=== PATIENT | female | born 1950 | race Caucasian/White ===

== ENCOUNTER 2023-09-18 09:08 | Outpatient (CLI) | payer MEDICARE, OTHER, SELFPAY ==
--- NOTE | 2023-09-18 09:15 | CRLHL7_ITS ---
For Patients: As a result of the Century Cures Act, medical imaging exams and procedure reports are released immediately into your electronic medical record. You may view this report before your referring provider. If you have questions, please contact your health care provider. INDICATION : Right thyroid lobe nodule TECHNIQUE : Ultrasound-guided fine needle aspiration of thyroid nodule. Comparison : 08/29/2023 FINDINGS : PROCEDURE: After the informed consent and time-out, multiple fine needle aspirations were obtained from the thyroid nodule. Fine needle performed. 25 gauge needles were used. Lidocaine was used for local anesthesia. The preliminary cytology was adequate for interpretation. Real-time imaging was used for guidance and needle placement. Post imaging ultrasound demonstrates no immediate complication. IMPRESSION : Successful fine needle aspiration of right thyroid nodule. Dictated by Feliz Rodriguez MD @ 09/18/2023 10:18:47 AM (Electronically Signed)
== END 2023-09-18 09:09 | disposition home or self-care (01) ==
LOC: US 09:10
PROVIDERS: PCP Physician Assistant; Visit Provider Student in an Organized Health Care Education/Training Program
DX: E04.1 Nontoxic single thyroid nodule (principal)
CPT/HCPCS: 10005

== ENCOUNTER 2024-12-18 15:32 | Emergency (ER) | payer MEDICARE, BC, SELFPAY ==
--- OUTSIDE RECORDS SUMMARY | 2024-12-18 15:34 | XMS_ITS | Clinical Summary ---
Author Organization [employer] [facility] Address [address] [place] [address] Care Team Providers Care Bank [employer] Savings Securities Trader Name Role Phone Feliz Ribeiro MD Unavailable [phone] Judith Ramírez MD Primary Care Prov ider Allergies Active Allergy Reactions Criticality Noted Date Comments Ketoconazole 01/28/2008 Causes liver to shut down Medications losartan (COZAAR) 50 mg tabletIndications :Essential hypertension Take 1 Tablet (50 mg) by mouth once daily. 90 Tablet 3 4 Active metroNIDAZOLE (METROCREAM) 0.75 % creamIndications: Rosacea Apply topically to affected area(s) two times daily. Use after you wash your face. 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 Since starting methotrexate, no recurrence of hearing loss. Hyperlipidemia 01/26/2021 Recurrent sudden hearing loss 01/13/2021 Overview (08/19/2023): Recurrent. Recurrent. BRCA2 genetic carrier 08/16/2015 Overview (08/19/2023): BRCA2- 7297delCT. Testing done 06/2015 S/p double mastectomy and reconstruction and BSO in 2016 Recommend yearly full-body skin exam Age-related osteoporosis wit hout current pathological fracture 10/27/2014 Overview (08/19/2023): Osteoporosis via dexa. Fosamax started 04/2023. No side effects. Repeat dexa scan in 03/2025 Colon polyp 02/23/2010 Overview (10/09/2021): Colonoscopy 02/2010 polyp repeat in 3 years Colonoscopy 07/2015 polyps repeat in 5 years Colonoscopy 09/2021 SSA, repeat in 5 years Unspecified essential hypertension 01/28/2008 Resolved Problems Problem Noted Date Diagnosed Date Resolved Date Left upper lobe pulmonary nodule 01/25/2021 08/19/2023 Overview (08/19/2023): Ground glass lesion noted on CT calcium score 01/24/21. Chest CT March 2023, resolved. Closed nondisplaced fracture of fifth metatarsal bone of left foot with routine healing 03/21/2017 01/13/2021 Immunizations Immunization Administration Dates Next Due AMB INFLUENZA IIV3 (AGE 65+ YRS) PF (Flu Clinic Only) 07/01/2017 COVID-19 vaccine (Rei-Frontier 30mcg/0.3mL) PF, MDV 12/09/2020,11/18/2020 Influenza, High-dose Inactivated 06/28/2024 Influenza, High-dose Quadriv alent Inactivated 07/06/2023,08/25/2022,07/30/2020 Influenza, IIV3 (Age >=3 years) 07/15/2008 Tdap 07/15/2008 Zoster (Shingrix-RZV, recombinant) 09/12/2023 Family History Medical History Relation Name Comments Other Daughter 1 Amarilys BRCA 2 postive Other Daughter 2 awaiting test r esults Cancer-colon Father contained, no c hemo Heart Disease Father 4 stents Hypertension Father Other Father knee and hip re placed Diabetes Maternal Grandmother Stroke Maternal Grandmother Hypertension Mother Other Mother blood clot Other Other [place] BRCA 2 positive Other Paternal Grandfather bang on's Cancer-breast Paternal Grandmother Cancer-colon Paternal Grandmother ? uteri ne Cancer-breast Sister 1 Sherie triple negativ e Cancer Sister 2 maya uterine stage I II, BrCa + Relation Name Status Comments Daughter 1 Amarilys Daughter 2 Father Maternal Grandmother Mother (Age 92) Other [place] Paternal Grandfather Paternal Grandmother Sister 1 Sherie Sister 2 maya Social History Tobacco Use Types Packs/Day Years Used Date Smoking Tobacco: Never Smokeless Tobacco: Never Tobacco Cessation:Counseling Given: Yes Alcohol Use Standard Drinks/Week Comments Yes 0 (1 standard drink = 0.6 oz pur e alcohol) very rare PHQ-2 Answer Date Recorded PHQ-2 TOTAL SCORE 0 03/29/2023 Social Connections Answer Date Recorded Do you often feel lonely or isolated from those around you? 0 08/19/2023 Financial Resource Strain Answer Date R ecorded Difficulty of Paying Living Expenses 3 08/19/2023 Difficulty of Paying Living Expenses Not on file 08/19/2023 Food Insecurity Answer Date Recorded Do you worry your food will run out before you are able to buy more? 1 08/19/2023 Transportation Needs Answer Date Record ed Does lack of transportation keep you from medica l appointments? 1 08/19/2023 Does lack of transportation keep you from work, meetings or getting things that you need? 1 08/19/2023 Housing Stability Answer Date Recorded What is your housing situation today? 1 08/19/2023 Utilities Answer Date Recorded Do you have trouble paying f or utilities (for example, heat, electricity, water, phone)? 1 08/19/2023 Comments No Sex and Gender Information Value Date Recorded Sex Assigned at Not on file Legal Sex Female 5:50 AM AWNING ERECTOR Gender Identity Not on file Sexual Orientation Not on file Occupation Industry Job Start Date Job End Date Not on file Not on file Not on file Not on file Obstetrics History Para Term AB IAB SAB Ectopic Multiple Livin g Live Births 2 Last Filed Vital Signs Vital Sign Reading Time Taken Comments Blood Pressure 108/72 08/05/2024 9:12 AM AWNING ERECTOR Pulse 74 08/05/2024 9:12 AM AWNING ERECTOR Temperature 37.1 C (98.8 F) 10/10/2021 11:25 AM AWNING ERECTOR Respiratory Rate 20 05/19/2021 8:31 AM CDT Oxygen Saturation 99% 08/05/2024 9:12 AM AWNING ERECTOR Inhaled Oxygen Concentration - - Weight 69.6 kg (153 lb 8 oz) 04/15/2024 8:15 AM CDT Height 170.2 cm (5' 7) 12/25/2023 9:08 AM CDT Body Mass Index 24.04 12/25/2023 9:08 AM CDT Plan of Treatment Health Maintenance Due Date Last Done Comments Pneumococcal series for age 50+ (1 of 1 - PCV) 1999 Medicare Wellness for age 65+ 2014 Tetanus booster 07/15/2018 07/15/2008 Zoster (shingles) series for age 50+ (2 of 2) 11/07/2023 09/12/2023 Depression screening for age 12+ 03/29/2024 03/29/2023, 12/27/2021, 01/16/2021, Additional history exists COVID-19 vaccine series ( season) 2024 07/13/2021, 12/09/2020, 11/18/2020 RSV vaccine for adults or (1 - 1-dose 75+ series) 2024 BMI (ht and wt on same day) for age 18+ 12/24/2024 12/25/2023, 03/29/2023, 12/27/2021, Additional history exists Colonoscopy through age 75 10/06/202610/06, 10/06/2021, 10/06/2021, Additional history exists Lipids for age 45-75 03/29/2028 03/29/2023, 12/27/2021, 01/13/2021, Additional history exists Tdap Completed 07/15/2008 Hepatitis C screening for ag e 18-79 Completed 01/13/2021 DEXA/DXA scan for age 65+ Completed 2022, 06/10/2015, 03/30/2011 Influenza Vaccine Completed 06/28/2024, , 07/15/2008 Medical Devices Implanted Type Area Professor [employer] Communication [employer] Device Identifier Shelf Expiration Date Model / Serial / Lot [id number] mike Breaste Full Txtrd Extra Prjctn [[id number]] Implanted:Qty: 1 on 10/13/2015 by Feliz Ribeiro MD at [facility] Explanted:at [facility] (Quantity not on file) Right: Breast [employer] - Inamed 133FX-12# / [id number] / Mesh Ventral 6x6in Vicryl Woven - [id number] Implanted:Qty: 2 on 10/13/2015 by Feliz Ribeiro MD at [facility] Bilateral: Breast [employer] Hernia Solution [id number]# / / [id number] mike Breaste Full Txtrd Extra Prjctn [[id number]] Implanted:Qty: 1 on 10/13/2015 by Feliz Ribeiro MD at [facility] Explanted:at [facility] (Quantity not on file) Left: Breast [employer] - Inamed 133FX-12# / [id number] / Procedures Procedure Name Priority Date/Time Associated Diagnosis Comments XR DXA BONE DENSITY 2 SITES AXIAL Routine 04/09/2023 9:15 AM CDT Osteopenia of both hips LIPID PANEL W REFLEX MEASURED LDL Routine 03/29/2023 11:02 AM CDT Hyperlipidemia, unspecified hyperlipidemia type COLONOSCOPY SCREENING Routine 10/06/2021 7:37 AM AWNING ERECTOR History of colon polyps ANTI HCV Routine 01/13/2021 9:38 AM CDT Need for hepatitis C screening test from Last 3 Months or Most Recently Relevant to Health Maintenance Results * (ABNORMAL) XR DXA BONE DENSITY 2 SITES AXIAL (04/09/2023 9:15 AM CDT) Anatomical Region Laterality Modality Spine, HIPS, HIPL, HIPR Other Impressions 04/17/2023 4:49 PM CDT Osteoporosis. RECOMMENDATIONS: The National Osteoporosis Foundation recommends pharmacologic treatment for patients with T-scores of -2.5 or less, patients with prior history of fragility fractures, or patients with 10-year probability of greater than 3% at hips or greater than 20% of suffering major osteoporotic fractures. Recommend continued optimization of calcium and vitamin D intake through dietary means and/or supplementation and regular exercise. Consider pharmacologic therapy for osteoporosis. Follow-up bone density reading in 2 years if therapy initiated to assess therapeutic efficacy. Lucila Taylor PA-C [facility] 04/17/2023 Narrative 04/17/2023 4:49 PM CDT For Patients: Results are automatically released to your [facility] ([employer] [facility] account once available, in compliance with federal regulations. This means that you may see your results before your provider has had a chance to review them. Please allow 2-3 business days for your provider to comment on the results. XR DXA Bone Mineral Density (BMD) EXAM LOCATION: [address] [address] PATIENT NAME: Maricarmen Dao DATE OF : 1950 EXAM DATE: 04/09/2023 REQUESTING PROVIDER: Ayde Joseph PA GENDER AT : female HEIGHT: 5' 7.13 (03/29/2023) WEIGHT: 154 lb 9.6 oz (03/29/2023) MENOPAUSAL STATUS: Postmenopausal RACE/ETHNICITY: White RISK FACTORS: White Race CURRENT MEDICATION FOR BONE LOSS: NONE INDICATION: Follow-up of existing osteopenia and Post-Menopause COMPARISON DATE(S): DXA scans are compared to prior studies for a patient only when the two (or more) studies were performed on the same scanner. It is not possible to compare data generated on one scanner to data from another because there are not standards in DXA equipment. This applies even if the two scanners are made by the same cisco certified network associate. PROCEDURE: Dual-energy x-ray absorptiometry performed with routine technique. Reporting is completed in the form of a T-score. The T-score represents the standard deviation from peak bone mass based on young healthy adult. A Z-score is used for diagnosis in premenopausal women, and for men under the age of 50. FINDINGS: RESULT LUMBAR SPINE L1 - L4 BMD: 0.877 g/cm2 T-Score: - 2.6 Z-Score: - 1.0 Change from prior in 2010: Decrease 12.5%. RESULTS FEMUR Left femoral neck BMD: 0.711 g/cm2 T-Score: - 2.4 Z-Score: - 0.6 Change from prior in 2014: Decrease 14.5%. Right femoral neck BMD: 0.748 g/cm2 T-Score: - 2.1 Z-Score: - 0.3 Change from prior in 2015: Decrease 14.0%. Left hip BMD: 0.720 g/cm2 T-Score: - 2.3 Z-Score: - 0.7 Change from prior in 2015: Decrease 11.5%. Right hip BMD: 0.709 g/cm2 T-Score: - 2.4 Z-Score: - 0.8 Change from prior in 2014: Decrease 13.1%. WHO criteria: Normal: T-score at or above -1 SD Osteopenia: T-score between -1.1 and -2.4 SD Osteoporosis: T-score at or below -2.5 SD FRAX RISK CALCULATION (USED FOR OSTEOPENIA ONLY): 10-year probability of major osteoporotic fracture: 15.2%. 10-year probability of hip fracture: 4.4%. Ayde WALKER DEXA Final Res ult * (ABNORMAL) LIPID PANEL W REFLEX MEASURED LDL (03/29/2023 11:02 AM CDT) [facility] CHOLESTEROL,TOTAL 210(H) 100 - 199 mg/dL 03/29/2023 7:35 PM CDT [facility] Comment: Cholesterol, Total Reference Ranges Desirable <200 mg/dL Borderline 200-239 mg/dL High >=240 mg/dL TRIGLYCERIDES 181(H) <150 mg/dL 03/29/2023 7:35 PM CDT [facility] HDL CHOLESTEROL 68 >40 mg/dL 7:35 PM CDT [facility] NON-HDL CHOLESTEROL 142 <145 mg/dl 03/29/2023 7:35 PM CDT [facility] CHOL/HDL RATIO 3.09 <4.50 03/29/2023 7:35 PM CDT [facility] LDL CHOLESTEROL 106 <=130 mg/dL 03/29/2023 7:35 PM CDT [facility] VLDL CHOLESTEROL 36(H) <=30 mg/dL 03/29/2023 7:35 PM CDT [facility] PROVIDER ORDERED STATUS RANDOM 03/29/2023 7:35 PM CDT [facility] Blood BLOOD SPECIMEN / Unknown Venipuncture / Unknown 03/29/2023 11:02 AM CDT 03/29/2023 11:02 AM CDT us Ayde WALKER CHEMISTRY Final Res ult [facility] [address] [place] [address], [place] * COLONOSCOPY (10/06/2021 7:43 AM AWNING ERECTOR) 10/06/2021 7:43 AM AWNING ERECTOR Narrative Transcriptions Demond Chan MD - 10/06/2021 8:43 AM CST Patient Name: Maricarmen Dao Procedure Date: 10/06/2021 Gender: Female Date of : 1950 Admit Type: Outpatient Procedure: Colonoscopy Proceduralist: Demond Chan MD , Eladia Burch, RN(Nurse) Referring MD: Lauren Arthur Indications/Pre-Op Diagnosis: High risk colon cancer surveillance:Personal history of adenoma less than 10 mm in size, High risk colon cancer surveillance:Personal history of sessile serrated colon polyp(less than 10 mm in size) with no dysplasia, Last colonoscopy: June 2015 Medications: Fentanyl 100 micrograms IV, Midazolam 4 mgIV, The level of sedation administered wasmoderate Procedure Description: The patient had risks, benefits and alternatives explained to andgave informed consent. The patient had a stable cardiopulmonary status and judged an adequate candidate for conscious sedation. The colonoscope was passed through the anus and advanced to thececum, identified by appendiceal orifice and ileocecal valve. Thecolonoscopy was performed without difficulty. The patient tolerated the procedure well. The quality of the bowel preparation was good. The ileocecal valve, appendiceal orifice, and rectum were photographed. Complications: No immediate complications. Estimated Blood Loss & Specimen: Estimated blood loss: none. Specimen collected - Yes and sent to Laboratory Findings: The perianal and digital rectal examinations were normal. A 3 mm polyp was found in the cecum. The polyp was sessile. The polyp was removed with a cold biopsy forceps. Resection and retrieval were complete. Multiple small-mouthed diverticula were found in the sigmoid colonand descending colon. There was narrowing of the colon in associationwith the diverticular opening. There was evidence of diverticular spasm. The exam was otherwise without abnormality. Impressions/Post-Op Diagnosis: - One 3 mm polyp in the cecum, removed with a cold biopsy forceps. Resected and retrieved. - Moderate diverticulosis in the sigmoid colon and in the descending colon. There was narrowing of the colon in association with the diverticular opening. There was evidence of diverticular spasm. - The examination was otherwise normal. Recommendation: - Patient has a contact number available for emergencies. The signsand symptoms of potential delayed complications were discussed with the patient. Return to normal activities tomorrow. Written discharge instructions were provided to the patient. - Resume previous diet. - Continue present medications. - Await pathology results. - Repeat colonoscopy is recommended. The colonoscopy date will be determined after pathology results from today's exam become available for review. Moderate Sedation: Moderate (conscious) sedation was administered by the endoscopy nurse and supervised by the endoscopist. The following parameters were monitored: oxygen saturation, heart rate, respiratory rate, blood pressure, adequacy of pulmonary ventilation and reponse to care. Please refer to the patient's medical record flowsheets and nursing notes for moderate sedation details. Total physician intraservice time was 22 minutes. Demond Chan MD 10/06/2021 8:43:15 AM This report has been signed electronically. Note Initiated On: 10/06/2021 7:43 AM Scope In: 8:11:51 AM Scope Withdrawal Time 0 hours 8 minutes 23 seconds Scope Out: 8:32:11 AM us Demond Chan MD PROCEDURE ORD Final Res ult * ANTI HCV (01/13/2021 9:38 AM CDT) HEPATITIS C ANTIBODY Non-React colette Non-React colette 01/13/2021 5:59 PM CDT [facility] Comment:Antibodies to HCV no t detected; does not exclude the possibility of exposure to HCV. Blood BLOOD SPECIMEN / Unknown Butterfly / Unknown 01/13/2021 9:38 AM CDT 01/13/2021 9:38 AM CDT us Lauren WALKER SEND OUTS Final Resu lt [facility] [address] [place] [address], [place] from Last 3 Months or Most Recently Relevant to Health Maintenance Insurance MEDICARE PART A HB ONLY Member Subscriber Plan / Payer (Ef fective 2014-Present) Name:Maricarmen Dao Member ID:[id number] Relation to Subscriber:Self Name:Maricarmen Dao Subscriber ID:[id number] Payer ID:Not on file Group ID:Not on file Type:Not on file Address: ATTN: CLAIMS [address] [facility] [place] [address] MEDICARE PART B [place] ONLY MEDICARE PB ONLY Member Subscriber Plan / Payer (Ef fective 2016-Present) Name:Maricarmen Dao Member ID:[id number] Relation to Subscriber:Self Name:Maricarmen Dao Subscriber ID:[id number] Payer ID:Not on file Group ID:Not on file Type:Not on file Address: ATTN: CLAIMS [facility] [address] [place] [address] MEDICARE PART B HB ONLY MEDICARE PART A HB ONLY MEDICARE PB ONLY Advance Directives * Full Code (Latest Code Status on File) Date Activated Date Inactivated Comments 10/13/2015 10:53 AM 10/15/2015 6:27 PM * Full Code Date Activated Date Inactivated Comments 09/21/2015 9:10 AM 09/21/2015 4:44 PM Care Teams [employer] Savings Securities Trader Relationship Specialty Start Date End Date Judith Ramírez MD [address] [place] [address] PCP - General Family Practice 08/19/23 Feliz Ribeiro MD Plastic and Reconstructive Surgery 01/13/16
[2024-12-18 15:40] VITALS: BP 148/87; PULSE 76; RESP 16; TEMP 36.7; O2SAT 98; BMI 22.9
--- NOTE | 2024-12-18 16:11 | CRLHL7_ITS ---
For Patients: As a result of the Century Cures Act, medical imaging exams and procedure reports are released immediately into your electronic medical record. You may view this report before your referring provider. If you have questions, please contact your health care provider. INDICATION: Fall. TECHNIQUE: Noncontrast CT of the head with multiplanar reconstruction utilizing bone and soft tissue algorithms. COMPARISON: CT head dated 09/21/2019. FINDINGS: No acute intracranial hemorrhage. The tijerina-white matter interface is preserved. The ventricles are normal in size. No abnormal extra-axial fluid collection is identified. Left parietal scalp hematoma. No underlying calvarial fracture. Symmetric globes. The imaged paranasal sinuses and mastoid air cells are clear. IMPRESSION: 1. No acute intracranial hemorrhage. 2. Left parietal scalp hematoma. No underlying calvarial fracture. Please note that all CT scans at this facility use dose modulation, iterative reconstruction, and/or weight-based dosing when appropriate to reduce radiation dose to as low as reasonably achievable. Dictated by Nate Bateman MD @ 12/18/2024 4:32:02 PM (Electronically Signed)
[2024-12-18] MEDS: LIDOCAINE/EPINEP/TETRACAINE 3 ML GEL..ML. TOPICAL (16:20)
[2024-12-18] MEDS: ACETAMINOPHEN 500 MG TABLET 1000 MG PO (16:20)
--- OUTSIDE RECORDS SUMMARY | 2024-12-18 16:22 | XMS_ITS | Clinical Summary ---
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 Gender Identity Not on file Sexual Orientation Not on file Occupation Industry Job Start Date Job End Date Not on file Not on file Not on file Not on file Obstetrics History Para Term AB IAB SAB Ectopic Multiple Livin g Live Births 2 Last Filed Vital Signs Vital Sign Reading Time Taken Comments Blood Pressure 108/72 08/05/2024 9:12 AM 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 Pulse 74 08/05/2024 9:12 AM 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 Temperature 37.1 C (98.8 F) 10/10/2021 11:25 AM 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 Respiratory Rate 20 05/19/2021 8:31 AM CDT Oxygen Saturation 99% 08/05/2024 9:12 AM 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 Inhaled Oxygen Concentration - - Weight 69.6 [...] , 07/15/2008 Medical Devices Implanted Type Area Laboratory Helper Device Identifier Shelf Expiration Date Model / Serial / Lot [id number] mike Breaste Full Txtrd Extra Prjctn [[id number]] Implanted:Qty: 1 on 10/13/2015 by Feliz Ribeiro MD at [facility] Explanted:at [facility] (Quantity not on file) Right: Breast [employer] - Inamed 133FX-12# / [id number] / Mesh Ventral 6x6in Vicryl Woven - [id number] Implanted:Qty: 2 on 10/13/2015 by Feliz Ribeiro MD at [facility] Bilateral: Breast [employer] Hernia Solution VWMM# / / [id number] mike Breaste Full Txtrd Extra Prjctn [[id number]] Implanted:Qty: 1 on 10/13/2015 by Feliz Ribeiro MD at [facility] Explanted:at [facility] (Quantity not on file) Left: Breast [employer] - Inamed 133FX-12# / [id number] / Procedures Procedure Name Priority Date/Time Associated Diagnosis Comments XR DXA BONE DENSITY 2 SITES AXIAL Routine 04/09/2023 9:15 AM CDT Osteopenia of both hips LIPID PANEL W REFLEX MEASURED LDL Routine 03/29/2023 11:02 AM CDT Hyperlipidemia, unspecified hyperlipidemia type COLONOSCOPY SCREENING Routine 10/06/2021 7:37 AM 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 Lucila Taylor PA-C [facility] 04/17/2023 Narrative 04/17/2023 4:49 PM CDT For Patients: Results are automatically released to your [facility] ([employer]) account once available, in compliance with federal regulations. This means that you may see your results before your provider has had a chance to review them. Please allow 2-3 business days for your provider to comment on the results. XR DXA Bone Mineral Density (BMD) EXAM LOCATION: [address] [address] PATIENT NAME: Maricarmen Dao DATE OF : [...] two scanners are made by the same touch up painter hand. PROCEDURE: Dual-energy x-ray absorptiometry performed with routine [...] REFLEX MEASURED LDL (03/29/2023 11:02 AM CDT) [facility] CHOLESTEROL,TOTAL 210(H) 100 - 199 mg/dL 03/29/2023 7:35 PM CDT [facility] Comment: Cholesterol, Total Reference Ranges Desirable <200 mg/dL Borderline 200-239 mg/dL High >=240 mg/dL TRIGLYCERIDES 181(H) <150 mg/dL 03/29/2023 7:35 PM CDT [facility] HDL CHOLESTEROL 68 >40 mg/dL 7:35 PM CDT [facility] NON-HDL CHOLESTEROL 142 <145 mg/dl 03/29/2023 7:35 PM CDT [facility] CHOL/HDL RATIO 3.09 <4.50 03/29/2023 7:35 PM CDT [facility] LDL CHOLESTEROL 106 <=130 mg/dL 03/29/2023 7:35 PM CDT [facility] VLDL CHOLESTEROL 36(H) <=30 mg/dL 03/29/2023 7:35 PM CDT [facility] PROVIDER ORDERED STATUS RANDOM 03/29/2023 7:35 PM CDT [facility] Blood BLOOD SPECIMEN / Unknown Venipuncture / Unknown 03/29/2023 11:02 AM CDT 03/29/2023 11:02 AM CDT us Ayde WALKER CHEMISTRY Final Res ult [facility] 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 Blood BLOOD SPECIMEN / Unknown Butterfly / Unknown 01/13/2021 9:38 AM CDT 01/13/2021 9:38 AM CDT us Lauren WALKER SEND OUTS Final Resu lt [facility] [address] [place] [address], [place] from Last 3 Months or Most Recently Relevant to Health Maintenance Insurance MEDICARE PART A HB ONLY Member Subscriber Plan / Payer (Ef fective 2014-Present) Name:Maricarmen Dao Member ID:[id number] Relation to Subscriber:Self Name:Maricarmen Dao Subscriber ID:[id number] Payer ID:Not on file Group ID:Not on file Type:Not on file Address: ATTN: [address]S [address] [place] [address] MEDICARE PART B HB ONLY MEDICARE PB ONLY Member Subscriber Plan / Payer (Ef fective 2016-Present) Name:Maricarmen Dao Member ID:[id number] Relation to Subscriber:Self Name:Maricarmen Dao Subscriber ID:[id number] Payer ID:Not on file Group ID:Not on file Type:Not on file Address: ATTN: CLAIMS [facility] [address] [place] [address] MEDICARE PART B HB ONLY MEDICARE PART A HB ONLY MEDICARE PB ONLY Advance Directives * Full Code (Latest Code Status on File) Date Activated Date Inactivated Comments 10/13/2015 10:53 AM 10/15/2015 6:27 PM * Full Code Date Activated Date Inactivated Comments 09/21/2015 9:10 AM 09/21/2015 4:44 PM Care Teams Human Resources Associate Relationship Specialty Start Date End Date Judith Ramírez MD [address] [place] [address] PCP - General Family Practice 08/19/23 Feliz Ribeiro MD Plastic and Reconstructive Surgery 01/13/16
--- NOTE | 2024-12-18 16:26 | ED_ITS ---
HPI - Wound/Laceration General Date Seen: 12/18/24 Chief Complaint: Laceration/Wound Stated Complaint: Fell, head lac Time Seen by Provider: 12/18/24 15:40 Source: patient, family, RN notes reviewed and old records reviewed Mode of arrival: ambulatory Limitations: no limitations History of Present Illness HPI narrative: This delightful 74-year-old female presents here with her daughter for evaluation of a fall. 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 Denies any significant loss of consciousness with this, but also some all was struck along the left side of her face also just below her eye and across the bridge of her nose. No bleeding from her nose, she denies any problems with walking or talking she describes her pain in her head approximately 3/10, no history of use of anticoagulants, denies any visual complaints. Denies any neck pain. Last tetanus was updated in 2007. Location: scalp Place: work Patient tetanus UTD: No Context: accidental Associated symptoms: none Treatments prior to arrival: cold therapy Related Data Home Medications ?Medication ?Instructions ?Recorded ?Confirmed lisinopril 10 mg tablet 10 mg PO DAILY 01/07/23 01/07/23 Previous Rx's ?Medication ?Instructions ?Recorded benzonatate 200 mg capsule 200 mg PO BID-TID PRN cough #10 01/07/23 caps Allergies Allergy/AdvReac Type Severity Reaction Status Date / Time ketoconazole Allergy Severe Liver Verified 01/07/23 15:44 Shutdown Review of Systems Status of ROS: Reports: 10 or more systems reviewed and unremarkable except as noted in History and below [facility] Social History Smoking Status: Never smoker Exam Narrative: Exam Narrative: On examination she is in no apparent distress speaking to me normally and lucidly. Alert oriented x3 with a GCS of 15/15. Pupils equal round reactive to light she tracks normal with absence of nystagmus, cranial nerves 3-12 are otherwise normal. Her TMs are normal bilaterally with absence of hemotympanum, negative Champagne sign. Her neck has good range of motion in flexion extension lateral flexion and rotation with no palpable tenderness over C-spine thoracic spine or lumbar spine. Centrifugal Machine Tender strengths are equal bilaterally, her Romberg is negative. Fine motor movements are fingers ar Const: Vital Signs, click to edit/add: Vital Signs - 24 hr 12/18/24 15:40 Temperature 98.0 F Pulse Rate [Pulse Oximeter] 76 Respiratory Rate 16 Blood Pressure [Ri ght Upper Arm] 148/87 H Pulse Oximetry 98 Oxygen Delivery Me thod Room Air Documenting provider has reviewed patient's vital signs: yes Course Reevaluation(s) Time of Reevaluation #1: 17:15 Reevaluation #1: I reviewed with the patient her CT scan did not show any acute findings, she was relieved by this, I cleaned out the wound with some Hibiclens after let was applied for approximately 30 minutes. And I used 5 wendy to close the wound quite nicely estimated blood loss less than 3 mL. Bacitracin applied to the wound. Vital Signs Vital signs: Initial Vital Signs Temperature 98.0 F 12/18/24 15:40 Temperature Source Temporal Artery Scan 12/18/24 15:40 Pulse Rate 76 12/18/24 15:40 Pulse Rhythm Regular 12/18/24 15:40 Respiratory Rate 16 12/18/24 15:40 Blood Pressure 148/87 H 12/18/24 15:40 Blood Pressure Mean 107 H 12/18/24 15:40 Blood Pressure Position Supine 12/18/24 15:40 Pulse Oximetry 98 12/18/24 15:40 Oxygen Delivery Method Room Air 12/18/24 15:40 Vital Signs Temperature 98.0 F 12/18/24 15:40 Pulse Rate 76 12/18/24 15:40 Respiratory Rate 16 12/18/24 15:40 Blood Pressure 148/87 H 12/18/24 15:40 Pulse Oximetry 98 12/18/24 15:40 Oxygen Delivery Method Room Air 12/18/24 15:40 Temperature 98.0 F 12/18/24 15:40 Pulse Rate 76 12/18/24 15:40 Respiratory Rate 16 12/18/24 15:40 Blood Pressure 148/87 H 12/18/24 15:40 Pulse Oximetry 98 12/18/24 15:40 Oxygen Delivery Method Room Air 12/18/24 15:40 Medications Administered Medications: Discontinued Medications Generic Name Dose Route Start Last Admin Trade Name Freq PRN Reason Stop Dose Admin Acetaminophen 1,000 mg 12/18/24 16:11 12/18/24 16:20 Acetaminophen 500 Mg Tablet PO 12/18/24 16:12 1,000 mg ONCE ONE Administration Diphtheria/Tetanus/Acell Pertussis 0.5 ml 12/18/24 16:50 12/18/24 16:49 Tetanus/Diphth/Pertussis 0.5 Ml Syringe IM 12/18/24 16:51 0.5 ml .ONCE ONE Administration Lidocaine/Epinephrine/Tetracaine 3 ml 12/18/24 16:11 12/18/24 16:20 Lidocaine/Epinep/Tetracaine 3 Ml Gel..Ml. TOPICAL 12/18/24 16:12 3 ml ONCE ONE Administration MDM - Wound/Laceration MDM Narrative Medical decision making narrative: Life-threatening differential diagnosis is considered include: Subarachnoid hemorrhage, subdural hemorrhage, epidural hemorrhage. Other differential diagnosis considered include concussion, closed head injury, or neck fracture. We will apply let to the wound, it is approximately 1-1/2 inches in gaping on the left posterior part of her head. Not seen associated hematoma, or foreign body, I will clean it out, and then likely wendy. Tetanus will be updated after discussion with her. Differential Diagnosis Differential diagnosis: Likely laceration and avulsion of skin Medical Records Attestation: I reviewed the patient's medical records. Imaging Data CT scan - head: Attestation: I have reviewed the pertinent imaging results. My impression: No acute findings Radiologist's impression: [place] [address] Diagnostic Imaging Report Patient: Maricarmen Funez MR#: [id number] : 1950 Acct:[id number] Loc: ED Service Date: 12/18/[address]: Ordering Physician: Lior Castano M.D. Date of Service: 12/18/24 Procedure(s): CT head/brain wo con Accession Number(s): [id number] cc: Lior Castano M.D.; Lauren Arthur~ For Patients: As a result of the Cures Act, medical imaging exams and procedure reports are released immediately into your electronic medical record. You may view this report before your referring provider. If you have questions, please contact your health care provider. INDICATION: Fall. TECHNIQUE: Noncontrast CT of the head with multiplanar reconstruction utilizing bone and soft tissue algorithms. COMPARISON: CT head dated 09/21/2019. FINDINGS: No acute intracranial hemorrhage. The tijerina-white matter interface is preserved. The ventricles are normal in size. No abnormal extra-axial fluid collection is identified. Left parietal scalp hematoma. No underlying calvarial fracture. Symmetric globes. The imaged paranasal sinuses and mastoid air cells are clear. IMPRESSION: 1. No acute intracranial hemorrhage. 2. Left parietal scalp hematoma. No underlying calvarial fracture. Please note that all CT scans at this facility use dose modulation, iterative reconstruction, and/or weight-based dosing when appropriate to reduce radiation dose to as low as reasonably achievable. 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 Return here if signs and symptoms of infection or worsening head injury which we have discussed. Tylenol for the discomfort. Activity Level: Light activity Discharge Diet: Regular Prescriptions: No Action lisinopril 10 mg tablet 10 mg PO DAILY benzonatate 200 mg capsule 200 mg PO BID-TID PRN (Reason: cough) Qty: 10 0RF Follow Up/Referrals: Lauren Arthur PA [Primary Care Provider] - Stand Alone Forms: MyHealth Info Instructions
[2024-12-18] MEDS: TETANUS/DIPHTH/PERTUSSIS 0.5 ML SYRINGE IM (16:49)
[2024-12-18 17:17] VITALS: BP 140/75; PULSE 75; RESP 16; O2SAT 98
== END 2024-12-18 17:18 | disposition home or self-care (01) ==
PROVIDERS: Emergency Provider Family Medicine; PCP Physician Assistant
DX: S01.91XA Laceration without foreign body of unspecified part of head, initial encounter (principal); S09.92XA Unspecified injury of nose, initial encounter; W01.190A Fall on same level from slipping, tripping and stumbling with subsequent striking against furniture, initial encounter; Y92.59 Other trade areas as the place of occurrence of the external cause; Y99.0 Civilian activity done for income or pay
CPT/HCPCS: 12001; 70450; 90471; 90715; 99283; 99284; A9270